=== PATIENT | male | born 2000 | race African-American/Black ===

== ENCOUNTER 2024-05-31 12:44 | Emergency (ER) | payer SELFPAY ==
[2024-05-31] MEDS ORDERED: Promethazine 25 MG TAB ONE (13:26)
[2024-05-31] MEDS ORDERED: Acetaminophen 500 MG TAB ONE (13:26)
== END 2024-05-31 14:35 | disposition home or self-care (01) ==
LOC: NAV ERS 12:44
DX: J10.1 Influenza due to other identified influenza virus with other respiratory manifestations (principal); F17.210 Nicotine dependence, cigarettes, uncomplicated
CPT/HCPCS: 87400; 87426; 99283; Q0169